=== PATIENT | male | born 1935 | race Caucasian/White ===

== ENCOUNTER 2016-06-05 09:46 | Observation (INO) | payer MEDICARE ==
[2016-06-04 11:18] VITALS: BP 135/76
[2016-06-04 11:56] LABS: HEMOGLOBIN 16.3 g/dL (13.7-18.0)
[2016-06-04 12:05] LABS: ASPARTATE AMINO TRANSFERASE 20 U/L (15-37); BLOOD UREA NITROGEN 14 mg/dL (7-18)
[~2016-06-05] VITALS: Ht 167.6 cm; Wt 72.7 kg
[~2016-06-05 09:46] MED LIST: ASPI-650 PO; ATOR20TA9 PO; CLOP75TA PO; METO-93 PO; RAMI2.5C PO
[2016-06-05] MEDS ORDERED: SODIUM CHLORIDE 0.9% 1,000 ML IV SCH (09:58)
[2016-06-05] MEDS ORDERED: CEFAZOLIN PMX 1GM/50ML 50 ML IVPB ONE (10:00)
[2016-06-05] MEDS ORDERED: MULT-6 PO (10:19)
[2016-06-05] MEDS ORDERED: GLUC1500 PO (10:19)
[2016-06-05] MEDS ORDERED: LACT1CAP35 PO (10:19)
[2016-06-05] MEDS ORDERED: DEXAMETHASONE 4 MG/ML, 5ML ONE (11:55)
[2016-06-05] MEDS ORDERED: FENTANYL PF 250 MCG/5ML ONE (11:55)
[2016-06-05] MEDS ORDERED: ONDANSETRON 2MG/ML, 2ML ONE (11:55)
[2016-06-05] MEDS ORDERED: ROCURONIUM 10 MG/ML ONE (11:55)
[2016-06-05] MEDS ORDERED: EPINEPHRINE 1 MG/ML, 1ML ONE (11:55)
[2016-06-05] MEDS ORDERED: CEFAZOLIN 1,000 MG ONE ×2 (11:55→12:10)
[2016-06-05] MEDS ORDERED: PHENYLEPHRINE 10 MG/ML ONE (11:55)
[2016-06-05] MEDS ORDERED: PROPOFOL 10 MG/ML, 20ML ONE (11:55)
[2016-06-05] MEDS ORDERED: LIDOCAINE 2%, 20ML ONE (12:10)
[2016-06-05] MEDS ORDERED: ZOLPIDEM 5MG TABLET PO PRN (13:30)
[2016-06-05] MEDS ORDERED: HYDROcodone/APAP 5/325 TABLET PO PRN (13:30)
[2016-06-05] MEDS ORDERED: MIDAZOLAM 1 MG/ML, 2ML IV PRN (14:00)
[2016-06-05] MEDS ORDERED: hydrALAzine 20 MG/ML, 1ML IV PRN (14:00)
[2016-06-05] MEDS ORDERED: FENTANYL PF 100 MCG/2ML IV PRN (14:00)
[2016-06-05] MEDS ORDERED: ALBUTEROL SULFATE 2.5 MG/3 ML NPPB PRN (14:00)
[2016-06-05] MEDS ORDERED: PROMETHAZINE 25 MG/ML, 1ML IV PRN (14:00)
[2016-06-05] MEDS ORDERED: ONDANSETRON 2MG/ML, 2ML IVPush PRN (14:00)
[2016-06-05] MEDS ORDERED: OXYcodone 5 MG/5 ML ORAL.SOL UDC PO PRN (14:00)
[2016-06-05] MEDS ORDERED: LABETALOL 5MG/ML, 20ML IV PRN (14:00)
[2016-06-05] MEDS ORDERED: HYDROmorphone 1 MG/ML, 1ML IV PRN (14:00)
[2016-06-05] MEDS ORDERED: MEPERIDINE/PF 25MG/0.5ML IVPush PRN (14:00)
[2016-06-05] MEDS ORDERED: ACETAMINOPHEN 325 MG TABLET PO PRN (14:00)
[2016-06-05 16:47] VITALS: BP 118/72
[2016-06-05 19:32] VITALS: BP 115/67
[2016-06-05] MEDS ORDERED: ATORVASTATIN 20 MG TABLET PO SCH (21:00)
[2016-06-05] MEDS: CEFAZOLIN PMX 1GM/50ML 50 ML IVPB SCH (21:43)
[2016-06-05] MEDS: LACTOBACILLUS CHEW TABLET PO SCH (21:44)
[2016-06-05] MEDS: METOPROLOL SUCCINATE 50 MG TAB.ER.24H PO SCH (21:44)
[2016-06-05] MEDS: SODIUM CHLORIDE FLUSH 10ML SYR IVF SCH (21:44)
[2016-06-06 00:41] VITALS: BP 107/59
[2016-06-06] MEDS: CEFAZOLIN PMX 1GM/50ML 50 ML IVPB SCH (05:05)
[2016-06-06] MEDS ORDERED: ASPIRIN 325 MG TABLET EC PO SCH (06:00)
[2016-06-06 07:10] VITALS: BP 128/51
[2016-06-06] MEDS ORDERED: ACET-1600 PO (08:01)
[2016-06-06] MEDS ORDERED: CLOPIDOGREL 75 MG TABLET PO SCH (09:00)
[2016-06-06] MEDS ORDERED: MULTIVITAMIN 1 TABLET PO SCH (09:00)
[2016-06-06] MEDS ORDERED: RAMIPRIL 2.5 MG CAPSULE PO SCH (09:00)
[2016-06-06] MEDS: LACTOBACILLUS CHEW TABLET PO SCH (09:11)
[2016-06-06] MEDS: METOPROLOL SUCCINATE 50 MG TAB.ER.24H PO SCH (09:11)
[2016-06-06] MEDS: SODIUM CHLORIDE FLUSH 10ML SYR IVF SCH (09:12)
== END 2016-06-06 10:00 | disposition home or self-care (01) ==
LOC: OUT 09:46 → ORIP 13:17 → 5SO 14:57 → DCLOUNGE 06-06 09:45
PROVIDERS: ADMIT Internal Medicine Cardiovascular Disease; ATTEND Internal Medicine Cardiovascular Disease
DX: I25.5 Ischemic cardiomyopathy (principal); I50.9 Heart failure, unspecified; I25.10 Atherosclerotic heart disease of native coronary artery without angina pectoris; I25.9 Chronic ischemic heart disease, unspecified; I10 Essential (primary) hypertension; E78.2 Mixed hyperlipidemia; I25.2 Old myocardial infarction; Z95.1 Presence of aortocoronary bypass graft; Z95.0 Presence of cardiac pacemaker
CPT/HCPCS: 33249; 36415; 71010; 71020; 80053; 85025; 85610; 85730; 93005; 93641; 96365; 96375; C1721; C1779; C1892; C1895; G0378; J0171; J0690; J1100; J2370; J2405; J2704; J3010; J3490

== ENCOUNTER 2016-12-10 11:40 | Inpatient (IN) | payer MEDICARE ==
[~2016-12-10] VITALS: Ht 167.6 cm; Wt 76.5 kg
[~2016-12-10 11:40] MED LIST changes: +ACET-1600 PO; +GLUC1500 PO; +LACT1CAP35 PO; +MULT-6 PO
[2016-12-10] MEDS ORDERED: SODIUM CHLORIDE FLUSH 10ML SYR IVF ONE (12:30)
[2016-12-10] MEDS ORDERED: ASPIRIN 81 MG TABLET CHEW PO ONE (12:30)
[2016-12-10 12:38] LABS: HEMATOCRIT 37.1 % (39.2-51.8); HEMOGLOBIN 11.7 g/dL (13.7-18.0)
[2016-12-10 12:50] LABS: BLOOD UREA NITROGEN 13 mg/dL (7-18)
[2016-12-10] MEDS ORDERED: SODIUM CHLORIDE FLUSH 10ML SYR IVF PRN (13:30)
[2016-12-10 14:20] VITALS: BP 146/72
[2016-12-10] MEDS ORDERED: ENOXAPARIN 40 MG/0.4 ML SQ SCH (15:30)
[2016-12-10] MEDS ORDERED: MORPHINE SULFATE 4 MG/ML, 1ML IVPush PRN (15:30)
[2016-12-10] MEDS ORDERED: ONDANSETRON ODT 4 MG PO PRN (15:30)
[2016-12-10] MEDS ORDERED: NITROGLYCERIN 0.4 MG/SPRAY SL PRN (15:30)
[2016-12-10] MEDS ORDERED: ONDANSETRON 2MG/ML, 2ML IVPush PRN (15:30)
[2016-12-10] MEDS ORDERED: NITROGLYCERIN 0.4 MG BOTTLE (25 TABS) SL PRN (15:30)
[2016-12-10] MEDS ORDERED: HEPARIN 5,000 UNITS/ML, 1ML IV ONE (16:00)
[2016-12-10] MEDS ORDERED: HEPARIN 25,000 UNITS/500ML PMX 500 ML IV PRN (16:00)
[2016-12-10 18:10] LABS: IS PT STATUS REG ER OR PRE ER? NO
[2016-12-10 19:13] VITALS: BP 132/68
[2016-12-10] MEDS ORDERED: METOPROLOL SUCCINATE 50 MG TAB.ER.24H PO SCH (21:00)
[2016-12-10] MEDS: RAMIPRIL 2.5 MG CAPSULE PO SCH (21:38)
[2016-12-10] MEDS: ATORVASTATIN 20 MG TABLET PO SCH (21:39)
[2016-12-10] MEDS: HEPARIN 5,000 UNITS/ML, 1ML IV PRN (23:22)
[2016-12-11 00:56] LABS: IS PT STATUS REG ER OR PRE ER? NO
[2016-12-11 02:54] VITALS: BP 118/59
[2016-12-11 06:07] LABS: HEMATOCRIT 35.9 % (39.2-51.8); HEMOGLOBIN 11.3 g/dL (13.7-18.0); WHITE BLOOD COUNT 7.6 x10^3/uL (3.4-10)
[2016-12-11 06:16] LABS: BLOOD UREA NITROGEN 11 mg/dL (7-18)
[2016-12-11] MEDS: HEPARIN 5,000 UNITS/ML, 1ML IV PRN (06:24)
[2016-12-11 06:26] LABS: ASPARTATE AMINO TRANSFERASE 18 U/L (15-37); FERRITIN 10.3 ng/mL (26-388); TOTAL IRON BINDING CAPACITY 424 mcg/dL (250-450)
[2016-12-11 08:05] VITALS: BP 151/70
[2016-12-11] MEDS ORDERED: SODIUM CHLORIDE 0.9% 1,000 ML IV SCH (08:56)
[2016-12-11] MEDS: CLOPIDOGREL 75 MG TABLET PO SCH (08:59)
[2016-12-11] MEDS: MULTIVITAMIN 1 TABLET PO SCH (08:59)
[2016-12-11] MEDS ORDERED: ATORVASTATIN 20 MG TABLET PO SCH (09:00)
[2016-12-11] MEDS ORDERED: RAMIPRIL 2.5 MG CAPSULE PO SCH (09:00)
[2016-12-11] MEDS ORDERED: IRON SUCROSE COMPLEX 100MG/5ML IV ONE (09:00)
[2016-12-11] MEDS ORDERED: ASPIRIN 325 MG TABLET EC PO SCH (09:00)
[2016-12-11] MEDS: METOPROLOL SUCCINATE 100 MG TAB.ER.24H PO SCH (09:00)
[2016-12-11] MEDS: ASPIRIN 81 MG TABLET EC PO SCH (11:06)
[2016-12-11 13:04] VITALS: BP 134/79
[2016-12-11] MEDS ORDERED: FENTANYL PF 100 MCG/2ML ONE (14:30)
[2016-12-11] MEDS ORDERED: MIDAZOLAM 1 MG/ML, 5ML ONE (14:30)
[2016-12-11] MEDS ORDERED: LIDOCAINE 2%, 20ML ONE (14:31)
[2016-12-11] MEDS ORDERED: TICAGRELOR 90 MG TABLET ONE (14:31)
[2016-12-11] MEDS ORDERED: BIVALIRUDIN 250 MG ONE ×2 (14:31→16:16)
[2016-12-11] MEDS ORDERED: VERAPAMIL 2.5 MG/ML, 2ML ONE (14:31)
[2016-12-11] MEDS ORDERED: HEPARIN 1,000 UNITS/ML, 10ML ONE (14:31)
[2016-12-11] MEDS ORDERED: BIVALIRUDIN 250 MG in DEXTROSE 5% 50 ML IV SCH (16:30)
[2016-12-11] MEDS: SODIUM CHLORIDE 0.9% 1,000 ML IV SCH ×3 (16:52→23:06)
[2016-12-11] MEDS ORDERED: SODIUM CHLORIDE 0.45% 1,000 ML IV SCH (17:00)
[2016-12-11 19:32] VITALS: BP 123/76
[2016-12-11] MEDS: FERROUS GLUCONATE 324 MG TABLET PO SCH (20:21)
[2016-12-11] MEDS: ATORVASTATIN 20 MG TABLET PO SCH (20:21)
[2016-12-11] MEDS: RAMIPRIL 2.5 MG CAPSULE PO SCH (20:22)
[2016-12-11 23:35] LABS: OCCBLD OBC PASS
[2016-12-12 01:35] VITALS: BP 106/59
[2016-12-12 05:08] LABS: HEMOGLOBIN 11.4 g/dL (13.7-18.0); WHITE BLOOD COUNT 10.2 x10^3/uL (3.4-10)
[2016-12-12 05:12] LABS: BLOOD UREA NITROGEN 11 mg/dL (7-18)
[2016-12-12 05:19] LABS: TOTAL IRON BINDING CAPACITY 397 mcg/dL (250-450)
[2016-12-12] MEDS: SODIUM CHLORIDE 0.9% 1,000 ML IV SCH (05:46)
[2016-12-12 07:49] VITALS: BP 129/67
[2016-12-12] MEDS: CLOPIDOGREL 75 MG TABLET PO SCH (09:14)
[2016-12-12] MEDS: ASPIRIN 81 MG TABLET EC PO SCH (09:14)
[2016-12-12] MEDS: MULTIVITAMIN 1 TABLET PO SCH (09:14)
[2016-12-12] MEDS: METOPROLOL SUCCINATE 100 MG TAB.ER.24H PO SCH (09:15)
[2016-12-12] MEDS: ISOSORBIDE MONONITRATE ER 30 MG TABLET PO SCH (11:13)
[2016-12-12 14:50] VITALS: BP 109/65
[2016-12-12] MEDS: FERROUS GLUCONATE 324 MG TABLET PO SCH (17:42)
[2016-12-12 19:39] VITALS: BP 110/58
[2016-12-12] MEDS: ATORVASTATIN 20 MG TABLET PO SCH (20:24)
[2016-12-12] MEDS: RAMIPRIL 2.5 MG CAPSULE PO SCH (20:24)
[2016-12-12 23:52] LABS: HEMATOCRIT 32.8 % (39.2-51.8); HEMOGLOBIN 10.4 g/dL (13.7-18.0)
[2016-12-13 02:53] VITALS: BP 90/44
[2016-12-13 08:21] LABS: HEMATOCRIT 35.7 % (39.2-51.8); HEMOGLOBIN 11.3 g/dL (13.7-18.0)
[2016-12-13] MEDS: ASPIRIN 81 MG TABLET EC PO SCH (08:29)
[2016-12-13 08:30] VITALS: BP 125/67
[2016-12-13] MEDS: CLOPIDOGREL 75 MG TABLET PO SCH (08:30)
[2016-12-13] MEDS: ISOSORBIDE MONONITRATE ER 30 MG TABLET PO SCH (08:30)
[2016-12-13] MEDS: METOPROLOL SUCCINATE 100 MG TAB.ER.24H PO SCH (08:30)
[2016-12-13] MEDS: MULTIVITAMIN 1 TABLET PO SCH (08:30)
[2016-12-13] MEDS ORDERED: ISOS30TA8 PO (11:38)
[2016-12-13] MEDS ORDERED: FERR325T16 PO (11:38)
== END 2016-12-13 13:25 | disposition home or self-care (01) | DRG 246 ==
LOC: ED 13:01 → EDIP 13:02 → ED 13:16 → 5SO 14:08
PROVIDERS: ADMIT Internal Medicine; ATTEND Internal Medicine
PROC: 027034Z Dilation of Coronary Artery, One Artery with Drug-eluting Intraluminal Device, Percutaneous Approach (ICD-10-PCS; principal; 2016-12-11)
PROC: 4A023N7 Measurement of Cardiac Sampling and Pressure, Left Heart, Percutaneous Approach (ICD-10-PCS; 2016-12-11)
PROC: B2111ZZ Fluoroscopy of Multiple Coronary Arteries using Low Osmolar Contrast (ICD-10-PCS; 2016-12-11)
PROC: B2131ZZ Fluoroscopy of Multiple Coronary Artery Bypass Grafts using Low Osmolar Contrast (ICD-10-PCS; 2016-12-11)
PROC: B2151ZZ Fluoroscopy of Left Heart using Low Osmolar Contrast (ICD-10-PCS; 2016-12-11)
DX: I21.4 Non-ST elevation (NSTEMI) myocardial infarction (principal); I50.23 Acute on chronic systolic (congestive) heart failure; E44.1 Mild protein-calorie malnutrition; I25.82 Chronic total occlusion of coronary artery; I25.5 Ischemic cardiomyopathy; I25.110 Atherosclerotic heart disease of native coronary artery with unstable angina pectoris; D50.9 Iron deficiency anemia, unspecified; E78.5 Hyperlipidemia, unspecified; I11.0 Hypertensive heart disease with heart failure; K58.9 Irritable bowel syndrome, unspecified; Z79.82 Long term (current) use of aspirin; Z82.3 Family history of stroke; Z85.46 Personal history of malignant neoplasm of prostate; Z87.891 Personal history of nicotine dependence; Z92.3 Personal history of irradiation; Z95.1 Presence of aortocoronary bypass graft; Z95.810 Presence of automatic (implantable) cardiac defibrillator; Z68.27 Body mass index [BMI] 27.0-27.9, adult
CPT/HCPCS: 36415; 71010; 80048; 80053; 80061; 82040; 82272; 82728; 83540; 83550; 83880; 84443; 84484; 85014; 85018; 85025; 85520; 85610; 85730; 93005; 93306; 93459; 93567; 99156; 99157; C1760; C1894; C9604; J0583; J1644; J1756; J2250; J3010; J3490; C1725; C1769; C1874; C1887; J7030; Q9967